=== PATIENT | female | born 1995 | race Caucasian/White ===

== ENCOUNTER → 2019-08-03 | Outpatient (CLI) | payer SELFPAY ==
--- NOTE | 2019-08-03 16:30 | RADIOLOGY REPORT (SQ) ---
EXAM DESCRIPTION: U/S OB 14+ TRNABD 1GES W/O DOP COMPLETED DATE/TIME: 08/03/2019 4:19 pm REASON FOR STUDY: Z34.03 ENCNTR FOR SUPRVSN OF NORMAL FIRST PREG, THIRD TRIMESTER Z34.03 ENCNTR FOR SUPRVSN OF NORMAL FIRST PREG, THIRD TRIMES COMPARISON: None. TECHNIQUE: Static and Dynamic grayscale imaging performed of gravid uterus using transabdominal appr oach. Additional selected color Doppler and spectral images recorded. All stored on PACS. LIMITATIONS: None. FINDINGS: FETUSES SEEN:1 EGA: 35 weeks 4 days Calculated using BPD,FL,HC,AC documented on images. Clinical dates are indeterm inate. LEONELA: 09/03/2019 EFW: 2,657 grams DOMINIQUE: 10.5 PLACENTA: Fundal in location GRADE: I PRESENTATION: Cephalic. ANATOMY: HEART RATE: 158 beats per minute. FOUR CHAMBER HEART: Visualized. THREE VESSEL CORD: Yes. CORD INSERTION: Visualized. KIDNEYS AND BLADDER: Visualized. Appear normal. STOMACH: Visualized. Appears normal. SPINE: Normal as visualized. BRAIN AND LATERAL VENTRICLES: Lateral ventricles not seen. Normal brain as visualized. OTHER: No other significant finding. MATERNAL ADNEXA: Maternal ovaries not visualized. CERVICAL LENGTH: Not applicable. Greater than 20 weeks. Need transvaginal study if indicated. Close d. OTHER: No other significant finding. IMPRESSION: LIVING INTRAUTERINE . ESTIMATED GESTATIONAL AGE 35 WEEKS 4 DAYS. NO VISUALIZED ANOMALIES. Trimester of : Third trimester - 28 weeks to delivery. TECHNICAL DOCUMENTATION: JOB ID: [id number] [employer]- All Rights Reserved Reading location - IP/workstation name: [email or web address]
== END ==
LOC: RAD 14:57
PROVIDERS: ATTEND Midwife
DX: Z34.03 Encounter for supervision of normal first pregnancy, third trimester (principal)
CPT/HCPCS: 76805

== ENCOUNTER 2019-08-20 16:27 | Inpatient (IN) | payer SELFPAY ==
--- NOTE | 2019-08-20 17:20 | Admission Physical ---
Datetime Report Generated by CPN: 08/20/2019 17:19 CURRENT ADMISSION Hx Assessment: The History has been Updated Chief Complaint: Signs/Symptoms Gestational HTN Admit Impression : Term, Intrauterine ; No Active Labor; Obstetrical Complication Admit Plan: Admit to Unit ALLERGIES Medication Allergies: No Latex: No Latex Allergies OBSTETRICAL HISTORY : 1 Para: 0 Gestational Diabetes: No Rh Sensitization: No Incompetent Cervix: No ALISON: No Infertility: No ART Treatment: No Uterine Anomaly: No IUGR: No Hx Previous C/S: No Macrosomia: No Hx Loss/Stillborn: No PIH: No Hx : No Placenta Previa/Abruption: No Depression/PP Depression: No PTL/PROM: No Post Hemorrhage: No Current Procedures: None SEE RECORDS Alcohol: No Marijuana : No Cocaine: No Other Illicit Drugs: No Cigarettes: Never Smoker. 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 Surgery: No Heart Disease: No Hosp/Surgery: No Autoimmune Disorder: No Anesthetic Complications: No Kidney Disease: No Abnormal Pap Smear: No Psychiatric Disorders: No Other Medical Diseases: No Hepatitis/Liver Disease: No Significant Family History: No Varicosities/Phlebitis: No Trauma/Violence : No Thyroid Dysfunction: No INFECTIOUS HISTORY Gonorrhea: No Genital Herpes: No Chlamydia: No Tuberculosis: No Syphilis: No Hepatitis: No HIV/AIDS Exposure: No Rash or Viral Illness: No HPV: No PHYSICAL EXAM General: Normal HEENT: Normal Neurologic: Normal Thyroid: Normal Heart: Normal Lungs: Normal Breast: Normal Back: Normal Abdomen: Normal Genitourinary Exam: Normal Extremities: Normal DTRs: Normal Pelvic Type: Adequate Physical Exam Comments: 1+ edema, 1+ reflexes Sporadic PNC Started in [facility] NKA blurry vision today Epigastric pain x 2 weeks lives with brother ROZ not involved Sono in [facility] ER 08-03-19 EDC 09-03-19 VAGINAL EXAM Dilatation: 1 Effacement: 60 Station: -3 MEMBRANES Membranes: Intact FETUS A Monitoring: External US Variability: Moderate 6-25bpm Accelerations: 15X15 Decelerations: None FHR Category: Category I Admit Comment: 24 y/o admitted to for gestatiuonal hypertension and r/o pre-eclampsia alert and talking, no hx seizures, hx taken with Gabby, family at spotted this am, not leaking of fluid, denies headache Admit. discussed plan of care with Dr. Pop. ? GBS status Pre-E labs PLANS FOR LABOR AND DELIVERY Labor and Delivery: None Pain Management: None Feeding Preference: Breast INFORMED CONSENT Assignment: Ewelina Pop MD Signature: with User ID: [email or web address] : with User ID: [email or web address]
[2019-08-20] MEDS ORDERED: RINGERS SOLUTION,LACTATED 300 ML IV ONE (17:35)
[2019-08-20] MEDS ORDERED: RINGERS SOLUTION,LACTATED 1,000 ML IV PRN (17:35)
[2019-08-20] MEDS ORDERED: PENICILLIN G POTASSIUM 5,000,000 UNIT in DEXTROSE 5%-WATER 100 ML IV ONE (17:35)
[2019-08-20] MEDS ORDERED: PENICILLIN G-K 5 MILLION UNIT VIAL ONE ×2 (17:38→20:55)
[2019-08-20] MEDS ORDERED: OXYTOCIN/NORMAL SALINE 20 UNIT/1,000 ML RTUINJ IV PRN ×2 (17:53→19:32)
[2019-08-20 18:06] LABS: APPEARANCE,URINE CLEAR; BILIRUBIN,URINE NEGATIVE (NEGATIVE); COLOR,URINE YELLOW; GLUCOSE, URINE NEGATIVE (NEGATIVE); KETONES,URINE NEGATIVE (NEGATIVE); LEUKOCYTE ESTERASE,URINE NEGATIVE (NEGATIVE); NITRITE,URINE NEGATIVE (NEGATIVE); PROTEIN,URINE >=500 mg/dL (NEGATIVE); UROBILINOGEN,URINE NEGATIVE mg/dL (<2.0)
[2019-08-20 18:12] LABS: ABSOLUTE EOSINOPHILS # (AUTO) 0.1 10^3/uL (0.0-0.6); ABSOLUTE LYMPHOCYTES (AUTO) 1.6 10^3/uL (0.5-4.7); ABSOLUTE MONOCYTES (AUTO) 0.4 10^3/uL (0.1-1.4); ABSOLUTE NEUT (AUTO) 6.1 10^3/uL (1.7-8.2); BASOPHILS % (AUTO) 0.4 % (0-2); EOSINOPHILS % (AUTO) 0.7 % (0-6); HEMATOCRIT 36.7 % (36.0-47.0); LYMPHOCYTES % (AUTO) 19.4 % (13-45); MEAN CORPUSCULAR HEMOGLOBIN 33.2 pg (27.0-33.4); MEAN CORPUSCULAR HGB CONC 35.5 g/dL (32.0-36.0); MEAN CORPUSCULAR VOLUME 94 fl (80-97); MONOCYTES % (AUTO) 5.5 % (3-13); PLATELET COUNT 138 10^3/uL (150-450); RED BLOOD COUNT 3.93 10^6/uL (3.72-5.28); RED CELL DISTRIBUTION WIDTH 13.1 % (11.5-14.0); TOTAL CELLS COUNTED % (AUTO) 100 %; WHITE BLOOD COUNT 8.2 10^3/uL (4.0-10.5)
[2019-08-20 18:22] LABS: URINE CREATININE 49.6 mg/dL (16-327)
[2019-08-20 18:24] LABS: URINE AMPHETAMINES SCREEN NEGATIVE; URINE BARBITURATES SCREEN NEGATIVE; URINE BENZODIAZEPINES SCREEN NEGATIVE; URINE COCAINE SCREEN NEGATIVE; URINE MARIJUANA (THC) SCREEN NEGATIVE; URINE METHADONE SCREEN NEGATIVE; URINE PHENCYCLIDINE SCREEN NEGATIVE
[2019-08-20 18:32] LABS: ALBUMIN 3.1 g/dL (3.5-5.0); ALKALINE PHOSPHATASE 253 U/L (38-126); ANION GAP 9 (5-19); ASPARTATE AMINO TRANSFERASE 40 U/L (14-36); BILIRUBIN,TOTAL 0.1 mg/dL (0.2-1.3); BLOOD UREA NITROGEN 10 mg/dL (7-20); CALCIUM 8.4 mg/dL (8.4-10.2); CARBON DIOXIDE 18 mmol/L (22-30); CHLORIDE 111 mmol/L (98-107); GLUCOSE 79 mg/dL (75-110); POTASSIUM 4.3 mmol/L (3.6-5.0); TOTAL PROTEIN 6.5 g/dL (6.3-8.2); URIC ACID 6.9 mg/dL (2.5-6.2)
[2019-08-20] MEDS ORDERED: MISOPROSTOL 0.2 MG TABLET ONE ×2 (18:32→20:41)
[2019-08-20] MEDS ORDERED: OXYTOCIN 10 UNIT/ML VIAL ONE ×2 (18:32→20:41)
[2019-08-20] MEDS ORDERED: LIDOCAINE 1% INJ-PF (10 MG/ML) 30 ML SDV ONE ×2 (18:32→20:41)
[2019-08-20] MEDS ORDERED: OXYTOCIN/NORMAL SALINE 0 UNIT/0 ML RTUINJ ONE (18:33)
[2019-08-20] MEDS ORDERED: HYDRALAZINE HCL INJ/PF 20 MG/1 ML SDV ONE (18:50)
[2019-08-20] MEDS ORDERED: MAGNESIUM SULFATE 20 GM/500 ML RTUINJ IV ONE (19:13)
[2019-08-20] MEDS ORDERED: MAGNESIUM SULFATE 4 GM/100 ML RTUPB IV ONE ×2 (19:13→19:20)
[2019-08-20] MEDS ORDERED: MAGNESIUM SULFATE 20 GM/500 ML RTUINJ IV PRN (19:21)
[2019-08-20] MEDS ORDERED: HYDRALAZINE HCL INJ/PF 20 MG/1 ML SDV IV ONE (19:23)
[2019-08-20 20:06] LABS: CHLAM PCR DETECTED (NOT DETECT)
[2019-08-20 20:14] LABS: UR PRO/CREAT RATIO RESULT 14.3 mg/mg (0.0-0.2); URINE PROTEIN 709.4 mg/dL (<12)
[2019-08-20] MEDS ORDERED: OXYTOCIN/NORMAL SALINE 20 UNIT/1,000 ML RTUINJ ONE (20:42)
[2019-08-20] MEDS ORDERED: AZITHROMYCIN INJ 500 MG VIAL IV ONE ×3 (20:46→20:52)
[2019-08-20] MEDS ORDERED: AZITHROMYCIN 1 GM SUSP PACKET PO ONE (20:47)
[2019-08-20] MEDS ORDERED: AZITHROMYCIN 250 MG TABLET ONE (20:52)
[2019-08-20] MEDS ORDERED: AZITHROMYCIN 1 GM SUSP PACKET ONE (20:55)
[2019-08-20] MEDS ORDERED: PENICILLIN G POTASSIUM 2,500,000 UNIT in DEXTROSE 5%-WATER 50 ML IV SCH (21:37)
[2019-08-20 22:26] LABS: HEMATOCRIT 38.3 % (36.0-47.0); HEMOGLOBIN 13.5 g/dL (12.0-15.5); MEAN CORPUSCULAR HEMOGLOBIN 32.8 pg (27.0-33.4); MEAN CORPUSCULAR HGB CONC 35.2 g/dL (32.0-36.0); MEAN CORPUSCULAR VOLUME 93 fl (80-97); PLATELET COUNT 154 10^3/uL (150-450); RED BLOOD COUNT 4.12 10^6/uL (3.72-5.28); RED CELL DISTRIBUTION WIDTH 13.3 % (11.5-14.0); WHITE BLOOD COUNT 14.9 10^3/uL (4.0-10.5)
[2019-08-20 22:52] LABS: ALBUMIN 3.2 g/dL (3.5-5.0); ALKALINE PHOSPHATASE 281 U/L (38-126); ANION GAP 11 (5-19); ASPARTATE AMINO TRANSFERASE 45 U/L (14-36); BILIRUBIN,DIRECT 0.1 mg/dL (0.0-0.4); BILIRUBIN,TOTAL 0.2 mg/dL (0.2-1.3); BLOOD UREA NITROGEN 9 mg/dL (7-20); CARBON DIOXIDE 17 mmol/L (22-30); CHLORIDE 108 mmol/L (98-107); GLUCOSE 106 mg/dL (75-110); POTASSIUM 3.9 mmol/L (3.6-5.0); TOTAL PROTEIN 6.5 g/dL (6.3-8.2); URIC ACID 6.6 mg/dL (2.5-6.2)
[2019-08-21] MEDS ORDERED: MEASLES,MUMPS&RUBELLA VACC/PF 0.5 ML VIAL SUBCUT PRN (00:09)
[2019-08-21] MEDS ORDERED: PSEUDOEPHEDRINE HCL 30 MG TABLET PO PRN (00:09)
[2019-08-21] MEDS ORDERED: NA PHOS,M-B/NA PHOS,DI-BA (ADULT) 133 ML ENEMA PR PRN (00:09)
[2019-08-21] MEDS ORDERED: MISOPROSTOL 0.2 MG TABLET PR PRN (00:09)
[2019-08-21] MEDS ORDERED: DIPHENHYDRAMINE HCL 25 MG CAPSULE PO PRN (00:09)
[2019-08-21] MEDS ORDERED: ACETAMINOPHEN 325 MG TABLET PO PRN (00:09)
[2019-08-21] MEDS ORDERED: PROMETHAZINE HCL 25 MG TABLET PO PRN (00:09)
[2019-08-21] MEDS ORDERED: GLYCERIN/WITCH HAZEL LEAF 1 EACH MED..WIPE TP PRN (00:09)
[2019-08-21] MEDS ORDERED: DIPH/PERTUSS(ACELL)/TETANUS VAC/PF 0.5 ML SYR (>=10YO) IM PRN (00:09)
[2019-08-21] MEDS ORDERED: OXYTOCIN/NORMAL SALINE 20 UNIT/1,000 ML RTUINJ IV PRN (00:09)
[2019-08-21] MEDS ORDERED: DIBUCAINE 1% OINTMENT 56 GM TP PRN (00:09)
[2019-08-21] MEDS ORDERED: PROMETHAZINE HCL 25 MG SUPP.RECT PR PRN (00:09)
[2019-08-21] MEDS ORDERED: ZOLPIDEM TARTRATE 5 MG TABLET PO PRN (00:09)
[2019-08-21] MEDS ORDERED: BENZOCAINE/MENTHOL AEROSOL SPRAY 56 ML TOP PRN (00:09)
[2019-08-21] MEDS ORDERED: PROMETHAZINE HCL INJ 25 MG/1 ML VIAL IV PRN (00:09)
[2019-08-21] MEDS ORDERED: ACETAMINOPHEN WITH CODEINE #3 TABLET PO PRN ×2 (00:09)
[2019-08-21] MEDS ORDERED: MAGNESIUM HYDROXIDE SUSP 30 ML UDCUP PO PRN (00:09)
--- NOTE | 2019-08-21 02:00 | Delivery Summary ---
Del Sum A-C Datetime Report Generated by CPN: 08/21/2019 02:00 DELIVERY PERSONNEL DELIVERY PERSONNEL: [id number] Delivery Doctor:: Ewelina Pop MD Labor and Delivery Nurse:: Shandra Jacobs RN Nursery Nurse:: Desiree Laray, RN MATERNAL INFORMATION Delivery Anesthesia: None Medications After Delivery: Pitocin Drip 20 Units/1000ml NSS; Cytotec 1000mcg Per Rectum/Vagina Estimated Blood Loss (ml): 300 Delivery QBL Comment: 300 Maternal Complications: Precipitous Labor (<3hrs) Provider Comments: Patient with limited verbal instruction due to language barrier. VMI delivered in TRACY presentation with tight nuchal cord and compound left hand. Placenta delivered intact spontaneoulsy. FF at U. Good hemostasis after clots removed and 3b perineal laceration repaired. Rectal exam revealed no sutures in vagina and no e/o rectal mucosa tear. mother and baby stable upon provider leaving the room. Cytotec 1000mcg given per rectum. LABOR SUMMARY EDC: 09/03/2019 00:00 No. Babies in Womb: 1 Attempted: No Labor Anesthesia: None LABOR INFORMATION Reason for Induction: Pre-Eclampsia Onset of Labor: 08/20/2019 21:50 Complete Dilatation: 08/20/2019 22:49 Oxytocin: Induction Group B Beta Strep: unknown Antibiotics # of Doses: 2 Antibiotics Time of Last Dose: 2222 Name of Antibiotic Given: PCN Steroids Given: None Reason Steroids Not Administered: Not Applicable MEMBRANES Membranes Rupture Method: Artificial Rupture of Membranes: 08/20/2019 22:48 Length of Rupture (hr): 0.53 Amniotic Fluid Color: Clear Amniotic Fluid Amount: Moderate Amniotic Fluid Odor: Normal STAGES OF LABOR Stage 1 hr: 0 Stage 1 min: 59 Stage 2 hr: 0 Stage 2 min: 31 Stage 3 hr: 0 Stage 3 min: 7 Total Time in Labor hr: 1 Total Time in Labor min: 37 VAGINAL DELIVERY Episiotomy: None Laceration #1: Perineal Laceration Extension #1: Third Degree, IIIb (Greater than 50 percent ext anal sphincter thickness torn) Laceration Repair: Yes Laceration Repair Note: 3rd degree laceration repaired in usual fashion Sponge Count Correct: Yes Sharps Count Correct: Yes CSECTION DELIVERY Primary Indication: N/A Secondary Indication: N/A CSection Incidence: N/A Labor: N/A Elective: N/A BABY A INFORMATION Infant Delivery Date/Time: 08/20/2019 23:20 Method of Delivery: Vaginal Born in Route : No : N/A Forceps: N/A Vacuum Extraction: N/A Shoulder Dystocia : No PRESENTATION/POSITION BABY A Presentation: Cephalic Cephalic Presentation: Vertex Vertex Position: Left Occipital Anterior Breech Presentation: N/A PLACENTA INFORMATION BABY A Placenta Delivery Time : 08/20/2019 23:27 Placenta Method of Delivery: Spontaneous Placenta Status: Delivered SCORES BABY A Heart Rate 1 min: >100 bpm Resp Effort 1 min: Good Cry Reflex Irritability 1 min: Cough or Sneeze or Pulls Away Muscle Tone 1 min: Some Flexion of Extremities Color 1 min: Blue/Pale Resuscitation Effort 1 min: Tactile Stimulation SCORE 1 MIN: 7 Heart Rate 5 min: >100 bpm Resp Effort 5 min: Good Cry Reflex Irritability 5 min: Cough or Sneeze or Pulls Away Muscle Tone 5 min: Active Motion Color 5 min: Body [employer], Extremities Blue SCORE 5 MIN: 9 INFANT INFORMATION BABY A Gestational Age at Delivery: 38.0 Gestational Status: Early Term- 37- 38.6 Weeks Outcome : Liveborn Infant Condition : Stable Infant Sex: Male IDENTIFICATION BABY A Verification Date/Time: 08/20/2019 23:31 ID Band Number: [id number] Mother's Name Verified: Yes Infant RN Verifying : E. Jilek RN/ [address] WEIGHT/LENGTH BABY A Birthweight (gm): 2559 Weight (lb): 5 Weight (oz): 10 Infant Length (in): 18.50 Infant Length (cm): 46.99 CORD INFORMATION BABY A No. Cord Vessels: 3 Nuchal Cord : Around Neck x1, Tight Cord Blood Taken: Yes-For Eval (Mom's Blood Type - or O+) Infant Suction: Mouth; Nose ASSESSMENT BABY A Skin to Skin: Yes BABY B INFORMATION : N/A SIGNATURES Signature: with User ID: [email or web address]
[2019-08-21] MEDS ORDERED: MAGNESIUM SULFATE 20 GM/500 ML RTUINJ IV ONE (05:02)
[2019-08-21] MEDS ORDERED: IBUPROFEN 800 MG TABLET ONE (05:02)
[2019-08-21] MEDS: IBUPROFEN 800 MG TABLET PO SCH ×3 (05:07→22:00)
[2019-08-21 08:30] LABS: ABSOLUTE LYMPHOCYTES (AUTO) 1.7 10^3/uL (0.5-4.7); ABSOLUTE MONOCYTES (AUTO) 0.8 10^3/uL (0.1-1.4); HEMATOCRIT 25.3 % (36.0-47.0); LYMPHOCYTES % (AUTO) 10.5 % (13-45); MEAN CORPUSCULAR HEMOGLOBIN 32.4 pg (27.0-33.4); MEAN CORPUSCULAR HGB CONC 34.1 g/dL (32.0-36.0); MEAN CORPUSCULAR VOLUME 95 fl (80-97); MONOCYTES % (AUTO) 4.7 % (3-13); PLATELET COUNT 164 10^3/uL (150-450); RED BLOOD COUNT 2.67 10^6/uL (3.72-5.28); RED CELL DISTRIBUTION WIDTH 12.9 % (11.5-14.0); SEGMENTED NEUTROPHILS % (AUTO) 84.8 % (42-78); TOTAL CELLS COUNTED % (AUTO) 100 %; WHITE BLOOD COUNT 16.5 10^3/uL (4.0-10.5)
[2019-08-21 08:33] LABS: HEMOGLOBIN 8.6 g/dL (12.0-15.5)
[2019-08-21 08:43] LABS: ALBUMIN 2.2 g/dL (3.5-5.0); ALKALINE PHOSPHATASE 180 U/L (38-126); ANION GAP 6 (5-19); ASPARTATE AMINO TRANSFERASE 45 U/L (14-36); BILIRUBIN,DIRECT 0.1 mg/dL (0.0-0.4); BILIRUBIN,TOTAL 0.1 mg/dL (0.2-1.3); BLOOD UREA NITROGEN 9 mg/dL (7-20); CARBON DIOXIDE 19 mmol/L (22-30); CHLORIDE 104 mmol/L (98-107); GLUCOSE 79 mg/dL (75-110); POTASSIUM 4.6 mmol/L (3.6-5.0); TOTAL PROTEIN 4.8 g/dL (6.3-8.2); URIC ACID 6.7 mg/dL (2.5-6.2)
[2019-08-21 08:52] LABS: CALCIUM 6.2 mg/dL (8.4-10.2)
[2019-08-21] MEDS: DOCUSATE SODIUM 100 MG CAPSULE PO SCH ×2 (17:54→18:38)
[2019-08-21] MEDS: SENNOSIDES/DOCUSATE 8.6-50 MG 1 EACH TABLET PO SCH (17:55)
[2019-08-21] MEDS: FAMOTIDINE 20 MG TABLET PO SCH ×2 (17:55→22:00)
[2019-08-21] MEDS: FERROUS SULFATE 325 MG TABLET PO SCH ×2 (17:55→18:38)
[2019-08-21] MEDS: PRENATAL VITAMIN W DHA CAPSULE PO SCH (17:55)
[2019-08-22] MEDS: IBUPROFEN 800 MG TABLET PO SCH ×3 (05:54→21:58)
[2019-08-22 06:37] LABS: HEPATITIS C VIRUS AB <0.1 s/co ratio (0.0-0.9)
[2019-08-22 07:37] LABS: HEPATITS B SURFACE ANTIGEN Negative (Negative)
[2019-08-22] MEDS ORDERED: INFLUENZA QUAD (6MOS+) 2019-20 VAC 0.5 ML SYR IM ONE (08:00)
[2019-08-22 08:27] LABS: HEMATOCRIT 19.2 % (36.0-47.0); MEAN CORPUSCULAR HEMOGLOBIN 33.5 pg (27.0-33.4); MEAN CORPUSCULAR VOLUME 96 fl (80-97); PLATELET COUNT 145 10^3/uL (150-450); RED BLOOD COUNT 2.01 10^6/uL (3.72-5.28); RED CELL DISTRIBUTION WIDTH 13.6 % (11.5-14.0); WHITE BLOOD COUNT 9.3 10^3/uL (4.0-10.5)
[2019-08-22 08:30] LABS: HEMOGLOBIN 6.7 g/dL (12.0-15.5)
[2019-08-22] MEDS ORDERED: IRON SUCROSE COMPLEX INJ/PF 100 MG/5 ML SDV IV ONE ×3 (08:57→13:00)
--- NOTE | 2019-08-22 09:07 | PDOC PROGRESS REPORT ---
Subjective Progress Note for:: 08/22/19 Subjective:: Doing well this morning. Sitting at the edge of the bed eating breakfast. Denies dizziness short of breath, lightheadedness, chest pain, or racing heart. She has ambulated in the room. Up to the restroom without incidence. Reports bleeding is moderate and less than yesterday. She is breast-feeding without complication pain is well managed with as needed medications. Discussed her hemoglobin with her which was 6.7 today. It was 13 on admission and had dropped to 8 yesterday. Discussed that she would likely benefit from a transfusion as her pulse this morning is also 109. Patient denied blood transfusion and states she feels fine. Discussed iron transfusion as an alternative and she is amendable to this. Reason For Visit: Physical Exam - Physical Exam Vital Signs: Temp Pulse Resp BP Pulse Ox 97.4 F 73 16 106/55 L 98 08/22/19 07:09 08/22/19 07:09 08/22/19 07:09 08/22/19 07:09 08/22/19 07:09 Intake & Output 08/21/19 08/22/19 08/23/19 06:59 06:59 06:59 Weight 58.4 kg General appearance: PRESENT: no acute distress, cooperative Respiratory exam: PRESENT: clear to auscultation [place] Cardiovascular exam: PRESENT: RRR, +S1, +S2 GI/Abdominal exam: PRESENT: normal bowel sounds, soft - Fundus at 1 to 2 cm below the umbilicus Neurological exam: PRESENT: alert, awake Psychiatric exam: PRESENT: appropriate affect Skin exam: PRESENT: dry, warm Result Laboratory Results: 08/22/19 07:38 08/21/19 07:51 08/22/19 07:38 WBC 9.3 RBC 2.01 L Hgb 6.7 L Hct 19.2 L MCV 96 MCH 33.5 H MCHC 35.0 RDW 13.6 Plt Count 145 L Assessment & Plan - Diagnosis (1) Vaginal delivery Is this a current diagnosis for this admission?: Yes Plan: Continue current care (2) Blood loss anemia Is this a current diagnosis for this admission?: Yes Plan: Plan for iron sucrose 100 mg IV now. Continue p.o. iron and vitamin - Time Time Spent with patient: 15-24 minutes Medications reviewed and adjusted accordingly: Yes Anticipated discharge: Home Within: within 24 hours Disposition: Stable
[2019-08-22] MEDS: FERROUS SULFATE 325 MG TABLET PO SCH ×2 (09:51→17:35)
[2019-08-22] MEDS: FAMOTIDINE 20 MG TABLET PO SCH ×2 (09:51→21:57)
[2019-08-22] MEDS: SENNOSIDES/DOCUSATE 8.6-50 MG 1 EACH TABLET PO SCH (09:51)
[2019-08-22] MEDS: DOCUSATE SODIUM 100 MG CAPSULE PO SCH ×2 (09:51→17:35)
[2019-08-22] MEDS: PRENATAL VITAMIN W DHA CAPSULE PO SCH (09:51)
[2019-08-23] MEDS: IBUPROFEN 800 MG TABLET PO SCH ×2 (07:00→14:58)
[2019-08-23] MEDS ORDERED: IBUPROFEN 800 MG TABLET PO ONE (07:00)
[2019-08-23] MEDS: FERROUS SULFATE 325 MG TABLET PO SCH (09:40)
[2019-08-23] MEDS: PRENATAL VITAMIN W DHA CAPSULE PO SCH (09:40)
[2019-08-23] MEDS: DOCUSATE SODIUM 100 MG CAPSULE PO SCH (09:40)
[2019-08-23] MEDS: SENNOSIDES/DOCUSATE 8.6-50 MG 1 EACH TABLET PO SCH (09:40)
[2019-08-23] MEDS: FAMOTIDINE 20 MG TABLET PO SCH (09:40)
[2019-08-23 10:04] LABS: HEMATOCRIT 18.8 % (36.0-47.0); MEAN CORPUSCULAR HEMOGLOBIN 33.3 pg (27.0-33.4); MEAN CORPUSCULAR HGB CONC 34.7 g/dL (32.0-36.0); MEAN CORPUSCULAR VOLUME 96 fl (80-97); PLATELET COUNT 193 10^3/uL (150-450); RED BLOOD COUNT 1.96 10^6/uL (3.72-5.28); RED CELL DISTRIBUTION WIDTH 13.6 % (11.5-14.0); WHITE BLOOD COUNT 14.1 10^3/uL (4.0-10.5)
[2019-08-23 10:07] LABS: HEMOGLOBIN 6.5 g/dL (12.0-15.5)
--- NOTE | 2019-08-23 10:46 | PDOC PROGRESS REPORT ---
Subjective-OB Progress Note for:: 08/23/19 Subjective: Ready for discharge. Female friend interpreted. Physical Exam (OB) Vital Signs: Temp Pulse Resp BP Pulse Ox 97.5 F 116 H 16 131/87 H 100 08/23/19 08:47 08/23/19 08:47 08/23/19 08:47 08/23/19 08:47 08/23/19 08:47 - PIH/Pre-Eclampsia Clonus: Negative Headache: Absent Epigastric Pain: No Visual Changes: No - Lochia Lochia Amount: Scant < 10 ml Lochia Color: Rubra/Red - Abdomen Description: Soft Hernia Present: No Bowel Sounds: Normoactive Flatus Presence: Present Stool: Yes Fundal Description: Firm, Midline Fundal Height: u/u - u/2 Objective-Diagnostic Laboratory: 08/23/19 09:46 08/21/19 07:51 08/23/19 09:46 WBC 14.1 H RBC 1.96 L Hgb 6.5 L Hct 18.8 L MCV 96 MCH 33.3 MCHC 34.7 RDW 13.6 Plt Count 193 08/20/19 18:00 Vaginal/Anorectal Group B Streptococcus Culture - Final NO GROUP B STREPTOCOCCUS RECOVERED Assessment and Plan(PN) - Time Spent with Patient Medications reviewed and adjusted accordingly: Yes - Disposition Anticipated Discharge: Home
[2019-08-23] MEDS ORDERED: IRON SUCROSE COMPLEX INJ/PF 100 MG/5 ML SDV IV ONE (11:00)
--- NOTE | 2019-08-23 11:01 | PDOC DISCHARGE SUMMARY ---
Impression - Admit/DC Date/PCP Admission Date/Primary Care Provider: 08/20/19 17:22 SATHISH DEL CASTILLO CNM Discharge Date: 08/23/19 - Discharge Diagnosis (1) Blood loss anemia Is this a current diagnosis for this admission?: Yes (2) Chlamydia infection affecting in third trimester Is this a current diagnosis for this admission?: Yes (3) Insufficient antepartum care Is this a current diagnosis for this admission?: Yes (4) Pre-eclampsia Is this a current diagnosis for this admission?: Yes (5) Third degree laceration of perineum, type 3b Is this a current diagnosis for this admission?: Yes (6) Vaginal delivery Is this a current diagnosis for this admission?: Yes - Additional Information Resuscitation Status: Full Code Discharge Diet: Regular Discharge Activity: Activity As Tolerated, Balance Activity w/Rest, Pelvic Rest, Slowly Increase Activity, No tub bath Referrals: SATHISH DEL CASTILLO CNM [Primary Care Provider] - ELISEO RODRIGUEZ MD [ACTIVE STAFF] - Prescriptions: Docusate Sodium [Colace 100 mg Capsule] 100 mg PO BID #30 capsule Ferrous Sulfate [Feosol 325 mg Tablet] 325 mg PO BID #60 tablet Home Medications: 57/Iron/Folic/Dss/Dha [Extra-Virt Plus Dha Softgel] 1 cap PO DAILY 08/20/19 Docusate Sodium [Colace 100 mg Capsule] 100 mg PO BID #30 capsule 08/23/19 Ferrous Sulfate [Feosol 325 mg Tablet] 325 mg PO BID #60 tablet 08/23/19 HPI Gestational Age: 38.0 wks Reason(s) for Admission: Induction of Labor, PIH Intrapartum Procedure(s): Spontaneous Vaginal Delivery Complication(s): Laceration-Perineal Laceration-Degree: 3rd Complication(s) Note: Acute blood loss anemia-refused blood transfusion-IV iron infusion x2. Results Laboratory Results: WBC 14.1 10^3/uL (4.0-10.5) H 08/23/19 09:46 RBC 1.96 10^6/uL (3.72-5.28) L 08/23/19 09:46 Hgb 6.5 g/dL (12.0-15.5) L 08/23/19 09:46 Hct 18.8 % (36.0-47.0) L 08/23/19 09:46 MCV 96 fl (80-97) 08/23/19 09:46 MCH 33.3 pg (27.0-33.4) 08/23/19 09:46 MCHC 34.7 g/dL (32.0-36.0) 08/23/19 09:46 RDW 13.6 % (11.5-14.0) 08/23/19 09:46 Plt Count 193 10^3/uL (150-450) 08/23/19 09:46 Lymph % (Auto) 10.5 % (13-45) L 08/21/19 07:51 [place] % (Auto) 4.7 % (3-13) 08/21/19 07:51 Eos % (Auto) 0.0 % (0-6) 08/21/19 07:51 Baso % (Auto) 0.0 % (0-2) 08/21/19 07:51 Absolute Neuts (auto) 14.0 10^3/uL (1.7-8.2) H 08/21/19 07:51 Absolute Lymphs (auto) 1.7 10^3/uL (0.5-4.7) 08/21/19 07:51 Absolute Monos (auto) 0.8 10^3/uL (0.1-1.4) 08/21/19 07:51 Absolute Eos (auto) 0.0 10^3/uL (0.0-0.6) 08/21/19 07:51 Absolute Basos (auto) 0.0 10^3/uL (0.0-0.2) 08/21/19 07:51 Seg Neutrophils % 84.8 % (42-78) H 08/21/19 07:51 Sodium 128.9 mmol/L (137-145) L 08/21/19 07:51 Potassium 4.6 mmol/L (3.6-5.0) 08/21/19 07:51 Chloride 104 mmol/L (98-107) 08/21/19 07:51 Carbon Dioxide 19 mmol/L (22-30) L 08/21/19 07:51 Anion Gap 6 (5-19) 08/21/19 07:51 BUN 9 mg/dL (7-20) 08/21/19 07:51 Creatinine 0.74 mg/dL (0.52-1.25) 08/21/19 07:51 Est GFR ( Amer) > 60 (>60) 08/21/19 07:51 Est GFR (MDRD) Non-Af > 60 (>60) 08/21/19 07:51 Glucose 79 mg/dL (75-110) 08/21/19 07:51 Uric Acid 6.7 mg/dL (2.5-6.2) H 08/21/19 07:51 Calcium 6.2 mg/dL (8.4-10.2) L* 08/21/19 07:51 Total Bilirubin 0.1 mg/dL (0.2-1.3) L 08/21/19 07:51 Direct Bilirubin 0.1 mg/dL (0.0-0.4) 08/21/19 07:51 Neonat Total Bilirubin Not Reportable 08/21/19 07:51 Neonat Direct Bilirubin Not Reportable 08/21/19 07:51 Neonat Indirect Bili Not Reportable 08/21/19 07:51 AST 45 U/L (14-36) H 08/21/19 07:51 ALT 18 U/L (<35) 08/21/19 07:51 Alkaline Phosphatase 180 U/L (38-126) H 08/21/19 07:51 Lactate Dehydrogenase 390 U/L (120-246) H 08/21/19 07:51 Total Protein 4.8 g/dL (6.3-8.2) L 08/21/19 07:51 Albumin 2.2 g/dL (3.5-5.0) L 08/21/19 07:51 Urine Color YELLOW 08/20/19 16:45 Urine Appearance CLEAR 08/20/19 16:45 Urine pH 7.0 (5.0-9.0) 08/20/19 16:45 Ur Specific Mobile 1.010 08/20/19 16:45 Urine Protein >=500 mg/dL (NEGATIVE) H 08/20/19 16:45 Urine Glucose (UA) NEGATIVE mg/dL (NEGATIVE) 08/20/19 16:45 Urine Ketones NEGATIVE mg/dL (NEGATIVE) 08/20/19 16:45 Urine Blood NEGATIVE (NEGATIVE) 08/20/19 16:45 Urine Nitrite NEGATIVE (NEGATIVE) 08/20/19 16:45 Urine Bilirubin NEGATIVE (NEGATIVE) 08/20/19 16:45 Urine Urobilinogen NEGATIVE mg/dL (<2.0) 08/20/19 16:45 Ur Leukocyte Esterase NEGATIVE (NEGATIVE) 08/20/19 16:45 Urine WBC (Auto) 4 /HPF 08/20/19 16:45 Urine RBC (Auto) 0 /HPF 08/20/19 16:45 U Hyaline Cast (Auto) 4 /LPF 08/20/19 16:45 Urine Bacteria (Auto) TRACE /HPF 08/20/19 16:45 Squamous Epi Cells Auto 1 /HPF 08/20/19 16:45 Urine Mucus (Auto) RARE /LPF 08/20/19 16:45 Urine Creatinine 49.6 mg/dL (16-327) 08/20/19 16:45 Protein/Creatinin Ratio 14.3 mg/mg (0.0-0.2) H 08/20/19 16:45 Urine Total Protein 709.4 mg/dL (<12) H 08/20/19 16:45 Urine Ascorbic Acid NEGATIVE (NEGATIVE) 08/20/19 16:45 Urine Opiates Screen NEGATIVE 08/20/19 16:45 Urine Methadone Screen NEGATIVE 08/20/19 16:45 Ur Barbiturates Screen NEGATIVE 08/20/19 16:45 Ur Phencyclidine Scrn NEGATIVE 08/20/19 16:45 Ur Amphetamines Screen NEGATIVE 08/20/19 16:45 U Benzodiazepines Scrn NEGATIVE 08/20/19 16:45 Urine Cocaine Screen NEGATIVE 08/20/19 16:45 U Marijuana (THC) Screen NEGATIVE 08/20/19 16:45 RPR NONREACTIVE (NONREACTIVE) 08/20/19 17:54 Chlamydia DNA (PCR) DETECTED (NOT DETECT) H 08/20/19 18:00 Hep Bs Antigen Negative (Negative) 08/20/19 17:54 Hepatitis C (BRYNN) <0.1 s/co ratio (0.0-0.9) 08/20/19 17:54 Hep C Verif Com 1 Comment (.) 08/20/19 17:54 HIV 1&2 Antibody NEGATIVE (NEGATIVE) 08/20/19 17:54 N.gonorrhoeae DNA (PCR) NOT DETECTED (NOT DETECT) 08/20/19 18:00 Rubella IgG Antibody 52.60 IU/mL 08/20/19 17:54 Rubella IgG Ab Interp POSITIVE 08/20/19 17:54 Blood Type O POSITIVE 08/20/19 17:54 Antibody Screen NEGATIVE 08/20/19 17:54 Plan Health Concerns: Anemia Goals: F/U at [facility] 08/27/19 for b/p ck, ck vaginal repair, and [facility] for chlamydia. Pelvic rest x 4-6 wks. Time Spent: Less than 30 Minutes - Female friend of patient interpreted.
[2019-08-23 12:37] VITALS: BP 120/64
== END 2019-08-23 15:15 | disposition home or self-care (01) | DRG 768 ==
LOC: LC 16:27 → LR 17:22 → 2S 08-21 13:15
PROVIDERS: ADMIT Student in an Organized Health Care Education/Training Program; ATTEND Student in an Organized Health Care Education/Training Program
PROC: 10E0XZZ Delivery of Products of Conception, External Approach (ICD-10-PCS; principal; 2019-08-20)
PROC: 0DQR0ZZ Repair Anal Sphincter, Open Approach (ICD-10-PCS; 2019-08-20)
PROC: 3E033VJ Introduction of Other Hormone into Peripheral Vein, Percutaneous Approach (ICD-10-PCS; 2019-08-20)
PROC: 10907ZC Drainage of Amniotic Fluid, Therapeutic from Products of Conception, Via Natural or Artificial Opening (ICD-10-PCS; 2019-08-20)
DX: O14.94 Unspecified pre-eclampsia, complicating childbirth (principal); Z37.0 Single live birth; O98.82 Other maternal infectious and parasitic diseases complicating childbirth; D62 Acute posthemorrhagic anemia; O70.22 Third degree perineal laceration during delivery, IIIb; O99.02 Anemia complicating childbirth; Z53.29 Procedure and treatment not carried out because of patient's decision for other reasons; O62.3 Precipitate labor; O69.1XX0 Labor and delivery complicated by cord around neck, with compression, not applicable or unspecified; Z3A.38 38 weeks gestation of pregnancy
CPT/HCPCS: 36415; 80053; 80307; 81001; 82570; 83615; 84156; 84550; 85025; 85027; 86592; 86701; 86762; 86803; 86804; 86850; 86900; 86901; 87070; 87081; 87340; 87491; 87591; 88307; J0360; J0456; J1756; J2540; J2590; J3475; J3490; Q0144